=== PATIENT | female | born 1955 | race Caucasian/White ===

== ENCOUNTER 2020-05-31 15:39 | Outpatient (REF) | payer OTHER, SELFPAY ==
--- NOTE | 2020-05-31 15:44 | MM_ITS ---
EXAMINATION: MM SCREENING DIGITAL BREAST TOMOSYNTHESIS, RIGHT CLINICAL INFORMATION: Screening. Status post left mastectomy. COMPARISON: Mammography: May 26, 2019 and studies dating back to November 09, 2010 TECHNIQUE: Digital breast tomosynthesis is performed in both the craniocaudal and mediolateral oblique views along with computer-aided detection (CAD). Synthesized 2D images are generated from the tomosynthesis. Exaggerated right craniocaudal view also performed. FINDINGS: There are scattered areas of fibroglandular density (ACR BI-RADS breast composition Category b). There are no significant masses, abnormal calcifications, or other abnormalities. There is postsurgical change of the right breast. MM/MM tomosynthesis screening RT IMPRESSION: There are no significant changes from prior study. ASSESSMENT: BI-RADS 2: Benign RECOMMENDATION: Routine annual mammography screening. This patient's information was entered into a reminder system with a target due date for their next mammogram.
== END 2020-05-31 15:40 | disposition home or self-care (01) ==
LOC: HO.MAMMO 15:39
PROVIDERS: Visit Provider Internal Medicine
DX: Z12.31 Encounter for screening mammogram for malignant neoplasm of breast (principal)
CPT/HCPCS: 77067

== ENCOUNTER 2021-10-24 10:57 | Outpatient (REF) | payer OTHER, SELFPAY ==
--- NOTE | ~2021-10-24 | MM_ITS ---
EXAMINATION: MM SCREENING DIGITAL BREAST TOMOSYNTHESIS, RIGHT CLINICAL INFORMATION: Right lumpectomy and radiation, 1988. Status post left mastectomy, 2008. COMPARISON: Mammography: 05/31/2020, 05/26/2019, 04/02/2017 TECHNIQUE: Digital breast tomosynthesis is performed in both the craniocaudal and mediolateral oblique views along with computer-aided detection (CAD). Synthesized 2D images are generated from the tomosynthesis. Additional exaggerated right CC view is provided. FINDINGS: There are scattered areas of fibroglandular density (ACR BI-RADS breast composition Category b). Parenchymal pattern is similar to prior studies. There is no interval mass or architectural abnormality or abnormal calcifications. No skin thickening or coarsening Mario's ligaments. MM/MM tomosynthesis screening RT IMPRESSION: No mammographic evidence of malignancy. ASSESSMENT: BI-RADS 1: Negative RECOMMENDATION: Routine annual mammography screening. This patient's information was entered into a reminder system with a target due date for their next mammogram.
== END 2021-10-24 10:58 | disposition home or self-care (01) ==
LOC: HO.MAMMO 10:57
PROVIDERS: PCP Internal Medicine; Visit Provider Internal Medicine
DX: Z12.31 Encounter for screening mammogram for malignant neoplasm of breast (principal)
CPT/HCPCS: 77063; 77067

== ENCOUNTER 2022-01-24 08:45 | Outpatient (REF) | payer OTHER, SELFPAY ==
--- NOTE | ~2022-01-24 | US_ITS ---
EXAMINATION: US RETROPERITONEAL LIMITED (RENAL ONLY) CLINICAL INFORMATION: Renal cyst, renal calculus, status post stent removal from right. COMPARISON: Renal cysts, calculus. TECHNIQUE: Real-time imaging of the kidneys. FINDINGS: RIGHT KIDNEY: 8.9 x 3.7 x 4.6 cm (SAG x AP x TRV). The kidney is normal in size, contour, and echogenicity. Renal cortical thickness is normal. No calculi or focal parenchymal lesions. No hydronephrosis. LEFT KIDNEY: 9.8 x 5.3 x 4.2 cm (SAG x AP x TRV). The kidney is normal in size, contour, and echogenicity. Renal cortical thickness is normal. No hydronephrosis. There is anechoic cyst in the upper pole measuring 3.7 x 3.9 x 4.2 cm. There is a nonobstructive echogenic calculi in the midpole measuring 0.3 x 0.2 0.3 cm. There is mild pelvic fullness. US/US renal BI IMPRESSION: 1. Unremarkable right kidney. 2. Nonobstructive echogenic stone midpole measuring 0.3 x 0.2 x 0.3 cm. There is anechoic cyst upper pole left kidney. There is mild pelvic fullness.
== END 2022-01-24 08:46 | disposition home or self-care (01) ==
LOC: HO.US 08:45
PROVIDERS: Visit Provider Urology
DX: D30.3 Benign neoplasm of bladder (principal); N28.1 Cyst of kidney, acquired; N20.0 Calculus of kidney
CPT/HCPCS: 76775

== ENCOUNTER 2022-12-04 11:30 | Outpatient (REF) | payer MEDICARE, OTHER, SELFPAY ==
--- NOTE | ~2022-12-04 | MM_ITS ---
EXAMINATION: MM SCREENING DIGITAL BREAST TOMOSYNTHESIS, UNILATERAL CLINICAL INFORMATION: Screening. Asymptomatic. The patient has had a prior left mastectomy. COMPARISON: Mammography: This study is compared to prior mammograms dating back to 2018. TECHNIQUE: Digital breast tomosynthesis is performed in both the craniocaudal and mediolateral oblique views along with computer-aided detection (CAD). Synthesized 2D images are generated from the tomosynthesis. FINDINGS: There are scattered areas of fibroglandular density (ACR BI-RADS breast composition Category b). There is a focal asymmetry in the upper outer quadrant of the right breast at approximately the 12:00 position. Additional mammographic imaging is advised. Targeted sonographic imaging, if warranted is advised. There are no significant masses or abnormal calcifications. MM/MM tomosynthesis screening RT IMPRESSION: Focal asymmetry of the right breast warrants additional mammographic imaging. Targeted sonographic imaging, if warranted is also advised. ASSESSMENT: BI-RADS BI-RADS 0 - Incomplete: Needs additional Imaging. RECOMMENDATION: 1. Additional views of the right breast 2. Targeted ultrasound if warranted after review of the additional views. 3. Radiology department staff will contact the patient for additional imaging. Additional Imaging required This patient's information was entered into a reminder system with a target due date for their next mammogram.
== END 2022-12-04 11:31 | disposition home or self-care (01) ==
LOC: HO.MAMMO 11:30
PROVIDERS: PCP Internal Medicine; Visit Provider Internal Medicine
DX: Z12.31 Encounter for screening mammogram for malignant neoplasm of breast (principal)
CPT/HCPCS: 77063; 77067

== ENCOUNTER → 2022-12-04 11:45 | Outpatient (BNV) | payer MEDICARE, OTHER, SELFPAY | PROVIDERS: PCP Internal Medicine; Visit Provider Radiology Diagnostic Radiology | DX: Z12.31 Encounter for screening mammogram for malignant neoplasm of breast (principal); Z85.3 Personal history of malignant neoplasm of breast | CPT/HCPCS: 77067 ==

== ENCOUNTER 2023-01-03 07:44 | Outpatient (REF) | payer MEDICARE, OTHER, SELFPAY ==
--- NOTE | ~2023-01-03 | MM_ITS ---
EXAMINATION: MM DIAGNOSTIC DIGITAL BREAST TOMOSYNTHESIS, RIGHT CLINICAL INFORMATION: The patient is seen for further evaluation of a focal asymmetry of the right breast noted on screening mammography from 11/26/2022. COMPARISON: Mammography: Studies compared with prior exams dating back to 2018. TECHNIQUE: Digital breast tomosynthesis is performed. 2D images are generated from the tomosynthesis. The following views are obtained: A full lateral view of the right breast and spot compression in the CC and MLO projections. FINDINGS: There are scattered areas of fibroglandular density (ACR BI-RADS breast composition Category b). Additional views show no significant mass, architectural abnormality, or abnormal calcifications. Results are provided to the patient at time of visit by the technologist. MM/MM tomosynthesis added views R IMPRESSION: No mammographic evidence of malignancy. ASSESSMENT: BI-RADS BI-RADS 1 - Negative RECOMMENDATION: 1 year F/U This patient's information was entered into a reminder system with a target due date for their next mammogram.
== END 2023-01-03 07:45 | disposition home or self-care (01) ==
LOC: HO.MAMMO 07:44
PROVIDERS: PCP Internal Medicine; Visit Provider Internal Medicine
DX: R92.8 Other abnormal and inconclusive findings on diagnostic imaging of breast (principal)
CPT/HCPCS: 77061; 77065

== ENCOUNTER → 2023-01-03 08:00 | Outpatient (BNV) | payer OTHER, SELFPAY | PROVIDERS: PCP Internal Medicine; Visit Provider Radiology Diagnostic Radiology | DX: R92.2 Inconclusive mammogram (principal) | CPT/HCPCS: 77065 ==

== ENCOUNTER 2023-12-25 16:03 | Outpatient (REF) | payer MEDICARE, OTHER, SELFPAY ==
--- NOTE | ~2023-12-25 | MM_ITS ---
EXAMINATION: MM SCREENING DIGITAL BREAST TOMOSYNTHESIS, BILATERAL CLINICAL INFORMATION: Screening. Asymptomatic. The patient has a history of bilateral breast cancer and left mastectomy. COMPARISON: Mammography: This study is compared with prior exams dating back to 2019. TECHNIQUE: Digital breast tomosynthesis is performed in both the craniocaudal and mediolateral oblique views along with computer-aided detection (CAD). Synthesized 2D images are generated from the tomosynthesis. FINDINGS: There are scattered areas of fibroglandular density (ACR BI-RADS breast composition Category b). There are no significant masses, abnormal calcifications, or other abnormalities. Postsurgical changes present in the upper outer quadrant of the right breast. MM/MM tomosynthesis screening RT IMPRESSION: No mammographic evidence of malignancy. ASSESSMENT: BI-RADS BI-RADS 2 - Benign Findings RECOMMENDATION: Routine annual mammography screening. 1 year F/U This examination should not preclude the clinical evaluation of a suspicious palpable abnormality. This patient's information was entered into a reminder system with a target due date for their next mammogram.
== END 2023-12-25 16:04 | disposition home or self-care (01) ==
LOC: HO.MAMMO 16:03
PROVIDERS: PCP Internal Medicine; Visit Provider Internal Medicine
DX: Z12.31 Encounter for screening mammogram for malignant neoplasm of breast (principal)
CPT/HCPCS: 77063; 77067

== ENCOUNTER → 2023-12-25 16:15 | Outpatient (BNV) | payer MEDICARE, OTHER, SELFPAY | PROVIDERS: PCP Internal Medicine; Visit Provider Radiology Diagnostic Radiology | DX: Z12.31 Encounter for screening mammogram for malignant neoplasm of breast (principal) | CPT/HCPCS: 77063; 77067 ==

== ENCOUNTER 2024-12-30 15:43 | Outpatient (REF) | payer MEDICARE, OTHER, SELFPAY ==
--- OUTSIDE RECORDS SUMMARY | 2024-12-30 15:47 | XMS_ITS | Clinical Summary ---
Author Organization [facility] Address [address] [place] [phone] Phone Care Team Providers Care Exploration Geologist Name Role Phone Roby Navarro MD Primary Care Provider [phone] Allergies Active Allergy Reactions Criticality Noted Date Comments Amoxicillin Anaphylaxis High 09/16/2021 Amoxicillin-Pot Clavulanate High 10/06/19 ANAPHYLAXIS. Itchiness, redness all over skin and hypotension,lip swelling Betamethasone Anaphylaxis High 07/17/2022 Metoclopramide Anxiety Low 03/26/2009 Medications alendronate (FOSAMAX) 70 mg tablet Take 1 tablet (70 mg total) by mouth. 04/13/2024 Active aspirin 81 mg chewable tablet 1 tablet 03/22/2021 Act erasto atorvastatin (LIPITOR) 10 mg tablet Take 1 tablet (10 mg total) by mouth daily. 12/04/2023 Active citalopram (CeleXA) 10 mg tablet Take 1 tablet (10 mg total) by mouth daily. 04/24/2021 Active multivitamine, geriatric, (CENTRUM SILVER) tablet Take 1 tablet by mouth daily. Active VITAMIN B COMPLEX ORAL Take 1 capsule by mouth daily. Active Active Problems Problem Noted Date Diagnosed Date Malignant neoplasm of overla pping sites of left breast in female, estrogen receptor positive (CMS/HCC V24, CMS/HCC V28) 04/29/2024 Resolved Problems Problem Noted Date Diagnosed Date Resolved Date Malignant neoplasm of overla pping sites of right breast in female, estrogen receptor positive (CMS/HCC V24, CMS/HCC V28) 04/29/2024 1106/2023 Immunizations Name Administration Dates Next Due Right90 SARS-CoV-2 COVID-19, mRNA, LNP-S, preservative free 09/11/2020,08/21/2020 Social History Tobacco Use Types Packs/Day Years Used Date Smoking Tobacco: Former Smokeless Tobacco: Never Alcohol Use Standard Drinks/Week Comments No 0 (1 standard drink = 0.6 oz pur e alcohol) Comments Unknown Sex and Gender Information Value Date Recorded Sex Assigned at Not on file Legal Sex Female 5:11 AM EST Gender Identity Not on file Sexual Orientation Not on file Obstetrics History Last Filed Vital Signs Vital Sign Reading Time Taken Comments Blood Pressure 137/60 04/29/2024 2:26 PM EST Pulse 74 04/29/2024 2:26 PM EST Temperature 36.8 C (98.3 F) 04/29/2024 2:26 PM EST Respiratory Rate - - Oxygen Saturation 100% 04/29/2024 2:26 PM EST Inhaled Oxygen Concentration - - Weight 63 kg (139 lb) 04/29/2024 2:26 PM EST Height 172.7 cm (5' 8 ) 04/03/2023 9:01 AM EDT Body Mass Index 21.13 04/03/2023 9:01 AM EDT Plan of Treatment Upcoming Encounters Date Type Department Care Team (Late st Contact Info) Description 04/29/2025 9:00 AM EST Office Visit [facility] Hematology Oncology [address] [place] [address] Rudy Hernandez MD [address] [place] [address] Health Maintenance Due Date Last Done Comments Breast Cancer Screening 1955 Colorectal Cancer Screening: Colonoscopy 05/18/2022 Falls Risk Assessment 05/18/2022 Social Influencers of Health Screening 05/18/2022 Medicare Annual Wellness Visit 10/11/2023 10/10/2022 COVID-19 Vaccine ( season) 2024 10/27/2021, 05/04/2021, 09/11/2020, Additional history exists Depression Screening 06/09/2024 Lung Cancer Screening (Low Dose CT) 11/23/2024 11/24/2023 Influenza Vaccine (#1) 2025 3, 05/09/2022, 03/27/2021, Additional history exists DTaP,Tdap,and Td Vaccines (3 - Td or Tdap) 03/19/2026 03/19/2016, 12/08/2003 Cholesterol Screening (Lipid Panel) 01/14/2029 01/15/2024 RSV Immunization Adult Patients (1 - 1-dose 75+ series) 02/18/2032 Osteoporosis Screening (Bone Density Screening) 01/02/2033 01/02/2023 Hepatitis C Screening Completed 07/12/2020 Zoster Vaccines Completed 10/25/2020, 05/29/2020 Pneumococcal Vaccine: 50+ Years Completed 05/09/2022 HIB Vaccines Aged Out No longer eligi ble based on patient's age to complete this topic HPV Vaccines Aged Out No longer eligi ble based on patient's age to complete this topic Hepatitis A Vaccines Aged Out No long er eligible based on patient's age to complete this topic Hepatitis B Vaccines Aged Out No long er eligible based on patient's age to complete this topic IPV Vaccines Aged Out No longer eligi ble based on patient's age to complete this topic MMR Vaccines Aged Out No longer eligi ble based on patient's age to complete this topic Meningococcal ACWY Vaccine Aged Out N o longer eligible based on patient's age to complete this topic Meningococcal B Vaccine Aged Out No l onger eligible based on patient's age to complete this topic RSV Immunization Patients Under 20 months Aged Out No longer eligible based on patient's age to complete this topic Varicella Vaccines Aged Out No longer eligible based on patient's age to complete this topic Insurance [facility] MEDICARE ADVANTAGE [address] [place] [address] MEDICARE Care Teams Exploration Geologist Relationship Specialty Start Date End Date Roby Navarro MD [address] [place] [address] PCP - General Internal Medicine 04/06/19
--- OUTSIDE RECORDS SUMMARY | 2024-12-30 15:47 | XMS_ITS | Clinical Summary ---
Author Organization [facility] Address [address] [place], [place] [id number] Care Team Providers Care Orthotist/Prosthetist Name Role Phone Roby Navarro MD Primary Care Provider [phone] Allergies Active Allergy Reactions Criticality Noted Date Comments Amoxicillin Anaphylaxis High 07/17/2022 Betamethasone Anaphylaxis High 07/17/2022 Metoclopramide Anxiety Low 03/30/2018 Medications Medication Sig Dispensed Refills Start Date End Date Status aspirin EC 81 MG tablet Take 1 tablet (81 mg total) by mouth daily. 0 Active Calcium Carb-Cholecalciferol 600-500 MG-UNIT CAPS Take by mouth. 0 Active cholecalciferol (VITAMIN D3) 1000 units tablet Take 1 tablet (1,000 Units total) by mouth daily. 0 Active B Complex Vitamins (VITAMIN-B COMPLEX PO) Take by mouth. 0 Active ascorbic acid (VITAMIN C) 500 MG tablet Take 1 tablet (500 mg total) by mouth daily. 0 Active apixaban (Eliquis) 5 MG TABS tablet Take 1 tablet (5 mg total) by mouth every 12 (twelve) hours. 0 Active citalopram (CeleXA) 10 MG tablet Take 1 tablet (10 mg total) by mouth daily. 0 Active Active Problems Problem Noted Date Diagnosed Date Multiple subsegmental pulmon neto emboli without acute cor pulmonale 07/17/2022 Malignant neoplasm of overla pping sites of left breast in female, estrogen receptor positive 03/30/2018 Malignant neoplasm of overla pping sites of right breast in female, estrogen receptor negative 03/30/2018 Social History Tobacco Use Types Packs/Day Years Used Date Smoking Tobacco: Former Smokeless Tobacco: Never Alcohol Use Standard Drinks/Week Comments No 0 (1 standard drink = 0.6 oz pur e alcohol) Sex and Gender Information Value Date Recorded Sex Assigned at Not on file Gender Identity Not on file Sexual Orientation Not on file Job Start Date Occupation Industry Not on file Not on file Not on file Last Filed Vital Signs Vital Sign Reading Time Taken Comments Blood Pressure 136/48 04/03/2023 9:01 AM EDT Pulse 65 04/03/2023 9:01 AM EDT Temperature 36.8 C (98.2 F) 04/03/2023 9:01 AM EDT Respiratory Rate - - Oxygen Saturation 99% 04/03/2023 9:01 AM EDT Inhaled Oxygen Concentration - - Weight 62.1 kg (137 lb) 04/03/2023 9:01 AM EDT Height 172.7 cm (5' 8 ) 04/03/2023 9:01 AM EDT Body Mass Index 20.83 04/03/2023 9:01 AM EDT Plan of Treatment Health Maintenance Due Date Last Done Comments Hepatitis C Screening 1955 Depression Screening 1969 Preventative Health Evaluation 1975 Colon Cancer Screening (Colonoscopy) 2002 Breast Cancer Screening (Mammogram) 2007 COVID-19 Vaccine (3 - Pfizer risk series) 10/09/2020 09/11/2020, 08/21/2020 Fall Risk Assessment 2022 Osteoporosis Screening (DEXA Scan) 2022 Influenza Vaccine (#1) 2025 , 03/27/2021, 03/27/2020, Additional history exists DTap / Tdap / Td (2 - Td or Tdap) 03/19/2026 03/19/2016, 12/08/2003 RSV Adult > 60+ Yrs or (1 - 1-dose 75+ series) 02/18/2032 Shingrix-Zoster Vaccine Completed 10/25/2020, 05/29 Pneumococcal Vaccine Completed 05/09/2022 Hepatitis B Vaccines Aged Out No long er eligible based on patient's age to complete this topic RSV Ped < 20 months Aged Out No longe r eligible based on patient's age to complete this topic Care Teams Orthotist/Prosthetist Relationship Specialty Start Date End Date Roby Navarro MD [address] [place] [address] [place] [address] PCP - General Internal Medicine 03/30/18
--- OUTSIDE RECORDS SUMMARY | 2024-12-30 15:47 | XMS_ITS | Encounter Summary ---
Author Organization [facility] Address [address] [place] [address] Phone Care Team Providers Care Scaler Name Role Phone Roby Navarro MD Primary Care Provider [phone] Rudy Hernandez MD Unavailable [phone] Roby Navarro MD Unavailable Encounter Details Date Type Department Care Team (Late st Contact Info) Description 04/04/2022 Procedure Pass [facility] Endoscopy Admitting Dept Virtual Department [address] [place] [address] Social History Tobacco Use Types Packs/Day Years Used Date Smoking Tobacco: Every Day Cigarettes 0.5 53.6 Started: 1969 Smokeless Tobacco: Never Alcohol Use Standard Drinks/Week Comments Yes 0 (1 standard drink = 0.6 oz pure alcohol) rare, 3 drinks a year liquer mixed drink Child or Family Care Answer Date Record ed Do you have problems with on e of the following making it difficult for you to work, study, or receive health care? No 10/05/2021 Education Answer Date Recorded Are you interested in help w ith more adult education (for example, completing high school, GED, job training, learning the Bengali language, technical skills, or developing parenting skills)? No 10/05/2021 Food Answer Date Recorded Within the past 6 months we worried whether our food would run out before we got money to buy more. Never True 10/05/2021 Within the past 6 months the food we bought just didn't last and we didn't have enough money to get more. Never True Residential Stability Answer Date Recor ded What is your housing situation today? I have jessica sing 10/05/2021 How many times have you move d in the past 12 months? Zero (I did not move) 10/05/2021 Paying for Meds Answer Date Recorded Do you have trouble paying for medicines? No 10/05/2021 Paying Utility Bills Answer Date Record ed Do you have trouble paying your heating or elect ricity bill? No 10/05/2021 Transportation Answer Date Recorded Has the lack of transportati on kept you from medical appointments or from getting medications? No 10/05/2021 Unemployment Answer Date Recorded Are you currently unemployed or working on a part-time or temporary basis, and looking for work? No 10/05/2021 Comments No Sex and Gender Information Value Date Recorded Sex Assigned at Female 10/18/2021 11:48 PM EDT Legal Sex Female 9:53 PM EDT Gender Identity Female 10/18/2021 11:48 PM EDT Sexual Orientation Straight 10/18/2021 11 :48 PM EDT documented as of this encounter Plan of Treatment Upcoming Encounters Date Type Department Care Team (Late st Contact Info) Description 04/27/2025 9:00 AM EST Office Visit [facility] Internal Medicine [address] [place] [address] Roby Navarro MD [address] [place] [address] 10/26/2025 8:30 AM EDT Office Visit [facility] Internal Medicine [address] [place] [address] Roby Navarro MD [address] [place] [address] [email or web address] documented as of this encounter Visit Diagnoses Not on filedocumented in this encounter Additional Health Concerns Infection Onset Date Last Indicated Resolved Time CoV-Risk Comment:Neg covid 06/25/2022 06/25/2022 06/26/2022 6:[address] Assessment Noted Time PHQ-2 Depression Total Score: 0 10/06/19 10:07 AM EDT documented as of this encounter Care Teams Scaler Relationship Specialty Start Date End Date Roby Navarro MD [address] [place] [address] [email or web address] PCP - General 03/27/17 Rudy Hernandez MD [address] [place] [email or web address] 01/13/23 Roby Navarro MD [address] [place] [address] [email or web address] Insurance Assigned Provider 09/13/23 documented as of this encounter Additional Source Comments The information contained in this document represents components of the legal health record. It is not the complete legal health record.[facility]
--- OUTSIDE RECORDS SUMMARY | 2024-12-30 15:47 | XMS_ITS | Patient Health Record ---
Author Organization [facility] [place] Address [address] [place] [address] Care Team Providers Care Managed Security Sales Consultant Name Role Phone Ramon MAYEN, Dr. Ca Primary Care Provider Alena Saleh MD, Dr. Gardner Unavailable Results Component Value Reference Range Notes LIPID PANEL, STANDARD Reviewed date:06/16/2024 07:12:49 PM Interpretation: Performing Lab:NL[facility], [facility] [facility] [place], [place] [id number] Eirc Schneider Notes/Report: FASTING; 0 FASTING:YES FASTING: YES CHOLESTEROL, TOTAL 123 <200 mg/dL HDL CHOLESTEROL 59 > OR = 50 mg/dL TRIGLYCERIDES 43 <150 mg/dL LDL-CHOLESTEROL 52 Reference range: <100 Desirable range <100 mg/dL for primary prevention; <70 mg/dL for patients with CHD or diabetic patients with > or = 2 CHD risk factors. LDL-C is now calculated using the Maury-Angelo calculation, which is a validated novel method providing better accuracy than the Friedewald equation in the estimation of LDL-C. Maury SS et al. CHRIS. 2013;310(19): 5719-3910 (http://education.[employer].com/faq/DZN056) CHOL/HDLC RATIO 2.1 <5.0 (calc) NON HDL CHOLESTEROL 64 <130 mg/dL (calc) For patients with diabetes plus 1 major ASCVD risk factor, treating to a non-HDL-C goal of <100 mg/dL (LDL-C of <70 mg/dL) is considered a therapeutic option. C-REACTIVE PROTEIN Reviewed date:06/16/2024 08:36:04 PM Interpretation: Performing Lab:NL2, [employer] [place] [id number] Eric Schneider Notes/Report: FASTING; 0 FASTING:YES FASTING: YES C-REACTIVE PROTEIN 3.9 <8.0 mg/L ECG Reviewed date: Interpretation: Performing Lab: Notes/Report: HR 86 P 108 PAxis 76 PQ 143 QRS 88 QRSAxis 89 QT 392 QTc 438 QTd 0 TAxis 70 Reason For Referral No Information Medications Medication SIG (Take, Route, Frequency, Duration) Notes Start Date End Date Status Atorvastatin Calcium 10 MG 1 tablet Orally Once a day Active Aspir-81 Active Fosamax 70 MG 1 tablet 30 minutes before the first food, beverage or medicine of the day with plain water Orally Active Ascorbic Acid 500 MG 1 tablet Orally Onc e a day Not-Taking Vitamin D3 25 MCG (1000 UT) 1 capsule Orally Once a day Not-Taking Calcium 600 MG 1 tablet with meals Orally Twice a day Active Vitamin B Complex - as directed Orally Active Citalopram Hydrobromide 10 MG 1 tablet Orally Once a day Active Multivitamin - 1 tablet Orally Once a day Active EPINEPHrine 0.3 MG/0.3ML as directed Injection Active Social History Tobacco Use: Social History Observation Description Date Details (start date - stop date) Current Smoker 06/20/1972 - NA Tobacco Control (Standard) Question Answer Notes Tobacco use: Current smoker When did you start smoking? 06/20/1972 How often do you smoke cigarettes? Every day How many cigarettes a day do you smoke? 6-10 AUDIT-C (Standard) Question Answer Notes Did you have a drink containing alcohol in the p ast year? No Points 0 Interpretation Negative Section Notes: [place] Quit smoking 15 years ago for 9 months Daughter is [employer]) ; son is teacher in [place]: Quit smoking 15 years ago for 9 months Daughter is [employer]) ; son is teacher in [place] Problems Problem Type SNOMED Code ICD Code Onset Dates Problem Status W/U Status Risk Notes Problem Hyperlipidemia (02437059) Hyperlipidemia, unspecified (E78.5) Active confirmed Problem Atherosclerotic heart disease of [place] coronary artery without angina pectoris (I25.10) Active confirmed Vital Signs Heart Rate 77 /min 08/27/2024 Blood pressure diastolic 60 mm Hg 08/27/2024 Oximetry 97 % 08/27/2024 Height 68 in 08/27/2024 Blood pressure systolic 110 mm Hg 08/27/2024 Weight 138 lbs 08/27/2024 BMI 20.98 kg/m2 08/27/2024 Encounters Encounter Location Date Provider Diagnosis Ana Rosa RHODES [address] [place], [place] [address] 06/29/2024 Kendra RHODES [address] [place] [address] 08/10/2024 Kendra RHODES [address] [place], [place] [address] 06/10/2024 Kendra Delfino Hyperlipidemia, unspecified E78.5 ; Atherosclerotic heart disease of [place] coronary artery without angina pectoris I25.10 ; Elevated blood-pressure reading, without diagnosis of hypertension R03.0 ; Tobacco use Z72.0 and Family history of ischemic heart disease and other diseases of the circulatory system Z82.49 Ana Rosa RHODES [address] [place] [address] 08/27/2024 Kendra Delfino Hyperlipidemia, unspecified E78.5 ; Atherosclerotic heart disease of [place] coronary artery without angina pectoris I25.10 ; Elevated blood-pressure reading, without diagnosis of hypertension R03.0 ; Tobacco use Z72.0 and Family history of ischemic heart disease and other diseases of the circulatory system Z82.49 Ana Rosa RHODES [address] [place], [place] [address] 04/05/2024 Kendra RHODES [address] [place] [address] 06/10/2024 Kendra RHODES [address] [place] [address] 07/01/2024 Kendra RHODES [address] [place] [address] 07/05/2024 Kendra RHODES [address] [place] [address] 08/06/2024 Kendra RHODES [address] [place] [address] 08/10/2024 Kendramarta Saleh Assessments Encounter Date Diagnosis (ICD Code) Assessment Notes Treatment Notes Treatment Clinical Notes Section Notes 06/10/2024 Hyperlipidemia, unspecified (ICD-10 - E78.5) 69-year-old recurrent breast cancer survivor active smoker found to have severe coronary artery calcifications on lung cancer screening CT. We discussed the natural history of atherosclerosis in detail. We discussed calcium is initially deposited in the medial layer of the vessel wall. We discussed progression is unpredictable. We discussed lung cancer screening technique does not tell us about degree of narrowing within the blood vessel itself. We discuss we know definively that ongoing cigarette smoking is a powerful growth factor for vascular disease. We discussed there is data that suggests that patient to stop smoking, in 1 year lower the risk of heart attack by 50%. She reports this has been a very difficult struggle for her; she does not smoke in her house or near her grandchildren ( whom she has helped care for) . She was appropriately started on statin ( low dose) after coronary artery calcifications were identified. She is not had updated lipid profile. We also discussed eating more plant based is also recommended. We discussed long-term cancer survivorship additionally increases risk of future vascular events approximately 10 years after patients have completed their cancer treatment. We discussed this is a current area of active research and now many patients are educated about this when they successfully complete their cancer treatment. This was not recognized at the time of treatment for either of her episodes of breast cancer. We also discussed concern about late toxicities from certain chemotherapy agents ( including adriamycin) and we should plan on pursuing echocardiogram. She does walk regularly but has no other formal exercise regimen. We will pursue ischemia evaluation (she reports reassuring normal myocardial perfusion imaging about 3 years ago in [facility]). We also discussed after stress testing, plans to increase her exercise regimen to achieve exercise 60 minutes a day including some resistance training and touched on some of the data regarding exercise and reduction of future vascular events. Blood pressure is elevated today, she thinks this is unusual. 06/10/2024 Atherosclerotic heart disease of [place] coronary artery without angina pectoris (ICD-10 - I25.10) 69-year-old recurrent breast cancer survivor active smoker found to have severe coronary artery calcifications on lung cancer screening CT. We discussed the natural history of atherosclerosis in detail. We discussed calcium is initially deposited in the medial layer of the vessel wall. We discussed progression is unpredictable. We discussed lung cancer screening technique does not tell us about degree of narrowing within the blood vessel itself. We discuss we know definively that ongoing cigarette smoking is a powerful growth factor for vascular disease. We discussed there is data that suggests that patient to stop smoking, in 1 year lower the risk of heart attack by 50%. She reports this has been a very difficult struggle for her; she does not smoke in her house or near her grandchildren ( whom she has helped care for) . She was appropriately started on statin ( low dose) after coronary artery calcifications were identified. She is not had updated lipid profile. We also discussed eating more plant based is also recommended. We discussed long-term cancer survivorship additionally increases risk of future vascular events approximately 10 years after patients have completed their cancer treatment. We discussed this is a current area of active research and now many patients are educated about this when they successfully complete their cancer treatment. This was not recognized at the time of treatment for either of her episodes of breast cancer. We also discussed concern about late toxicities from certain chemotherapy agents ( including adriamycin) and we should plan on pursuing echocardiogram. She does walk regularly but has no other formal exercise regimen. We will pursue ischemia evaluation (she reports reassuring normal myocardial perfusion imaging about 3 years ago in [facility]). We also discussed after stress testing, plans to increase her exercise regimen to achieve exercise 60 minutes a day including some resistance training and touched on some of the data regarding exercise and reduction of future vascular events. Blood pressure is elevated today, she thinks this is unusual. 08/27/2024 Hyperlipidemia, unspecified (ICD-10 - E78.5) 69-year-old recurrent breast cancer survivor active smoker found to have severe coronary artery calcifications on lung cancer screening CT. We reviewed again calcium is initially deposited in the medial layer of the vessel wall. We discussed progression is unpredictable and reviewed worrisome symptoms. We discuss we know definively that ongoing cigarette smoking is a powerful growth factor for vascular disease. We discussed there is data that suggests that patient to stop smoking, in 1 year lower the risk of heart attack by 50%. WE discussed [facility] supportive programs, i.e. 1800 quit now. She reports this has been a very difficult struggle for her; she does not smoke in her house or near her grandchildren ( whom she has helped care for) . She was appropriately started on statin ( low dose) after coronary artery calcifications were identified. Last LDL at goal. We also discussed eating more plant based is also recommended. We discussed long-term cancer survivorship additionally increases risk of future vascular events approximately 10 years after patients have completed their cancer treatment. She does walk regularly but has no other formal exercise regimen; she remembers we discussed increasing her walking and adding resistance training and she is planning on doin this. 08/27/2024 Atherosclerotic heart disease of [place] coronary artery without angina pectoris (ICD-10 - I25.10) Reassuring stress test reviewed with patient; all questions answered; ongoing risk factor modification discussed. Worrisome symptoms reviewed; all questions answered. 69-year-old recurrent breast cancer survivor active smoker found to have severe coronary artery calcifications on lung cancer screening CT. We reviewed again calcium is initially deposited in the medial layer of the vessel wall. We discussed progression is unpredictable and reviewed worrisome symptoms. We discuss we know definively that ongoing cigarette smoking is a powerful growth factor for vascular disease. We discussed there is data that suggests that patient to stop smoking, in 1 year lower the risk of heart attack by 50%. WE discussed [facility] supportive programs, i.e. 1800 quit now. She reports this has been a very difficult struggle for her; she does not smoke in her house or near her grandchildren ( whom she has helped care for) . She was appropriately started on statin ( low dose) after coronary artery calcifications were identified. Last LDL at goal. We also discussed eating more plant based is also recommended. We discussed long-term cancer survivorship additionally increases risk of future vascular events approximately 10 years after patients have completed their cancer treatment. She does walk regularly but has no other formal exercise regimen; she remembers we discussed increasing her walking and adding resistance training and she is planning on doin this. 08/27/2024 Elevated blood-pressure reading, without diagnosis of hypertension (ICD-10 - R03.0) 69-year-old recurrent breast cancer survivor active smoker found to have severe coronary artery calcifications on lung cancer screening CT. We reviewed again calcium is initially deposited in the medial layer of the vessel wall. We discussed progression is unpredictable and reviewed worrisome symptoms. We discuss we know definively that ongoing cigarette smoking is a powerful growth factor for vascular disease. We discussed there is data that suggests that patient to stop smoking, in 1 year lower the risk of heart attack by 50%. WE discussed [facility] supportive programs, i.e. 1800 quit now. She reports this has been a very difficult struggle for her; she does not smoke in her house or near her grandchildren ( whom she has helped care for) . She was appropriately started on statin ( low dose) after coronary artery calcifications were identified. Last LDL at goal. We also discussed eating more plant based is also recommended. We discussed long-term cancer survivorship additionally increases risk of future vascular events approximately 10 years after patients have completed their cancer treatment. She does walk regularly but has no other formal exercise regimen; she remembers we discussed increasing her walking and adding resistance training and she is planning on doin this. 06/10/2024 Elevated blood-pressure reading, without diagnosis of hypertension (ICD-10 - R03.0) We discussed the recent Surgeon General's call to action to control hypertension. We discussed hypertension is often known as a silent killer as it frequently, has no signs or symptoms. If not well controlled, hypertension can increase a person's risk for heart disease, stroke, heart failure, kidney disease, complications and cognitive decline or dementia. However, hypertension is preventable risk factor for heart disease and stroke. Hypertension is very common, as nearly 1 in 2 adults have hypertension yet only 1 in 4 have it under control. DASH diet: DASH stands for dietary approaches to stop hypertension . The DASH diet is a lifelong approach to healthy eating that''s designed to help treat or prevent high blood pressure. DASH diet encourages to reduce the sodium in her diet and eat a variety of foods rich in nutrients that help lower blood pressure, such as potassium, calcium and magnesium. By following the DASH diet, you may be able to reduce your blood pressure by a few points in just 2 weeks. Over time, your systolic blood pressure could drop by 8-14 points. The DASH diet emphasizes vegetables, fruits and low fat dairy foods and moderate amounts of whole grains, fish poultry and nuts. 69-year-old recurrent breast cancer survivor active smoker found to have severe coronary artery calcifications on lung cancer screening CT. We discussed the natural history of atherosclerosis in detail. We discussed calcium is initially deposited in the medial layer of the vessel wall. We discussed progression is unpredictable. We discussed lung cancer screening technique does not tell us about degree of narrowing within the blood vessel itself. We discuss we know definively that ongoing cigarette smoking is a powerful growth factor for vascular disease. We discussed there is data that suggests that patient to stop smoking, in 1 year lower the risk of heart attack by 50%. She reports this has been a very difficult struggle for her; she does not smoke in her house or near her grandchildren ( whom she has helped care for) . She was appropriately started on statin ( low dose) after coronary artery calcifications were identified. She is not had updated lipid profile. We also discussed eating more plant based is also recommended. We discussed long-term cancer survivorship additionally increases risk of future vascular events approximately 10 years after patients have completed their cancer treatment. We discussed this is a current area of active research and now many patients are educated about this when they successfully complete their cancer treatment. This was not recognized at the time of treatment for either of her episodes of breast cancer. We also discussed concern about late toxicities from certain chemotherapy agents ( including adriamycin) and we should plan on pursuing echocardiogram. She does walk regularly but has no other formal exercise regimen. We will pursue ischemia evaluation (she reports reassuring normal myocardial perfusion imaging about 3 years ago in [facility]). We also discussed after stress testing, plans to increase her exercise regimen to achieve exercise 60 minutes a day including some resistance training and touched on some of the data regarding exercise and reduction of future vascular events. Blood pressure is elevated today, she thinks this is unusual. 06/10/2024 Tobacco use (ICD-10 - Z72.0) 69-year-old recurrent breast cancer survivor active smoker found to have severe coronary artery calcifications on lung cancer screening CT. We discussed the natural history of atherosclerosis in detail. We discussed calcium is initially deposited in the medial layer of the vessel wall. We discussed progression is unpredictable. We discussed lung cancer screening technique does not tell us about degree of narrowing within the blood vessel itself. We discuss we know definively that ongoing cigarette smoking is a powerful growth factor for vascular disease. We discussed there is data that suggests that patient to stop smoking, in 1 year lower the risk of heart attack by 50%. She reports this has been a very difficult struggle for her; she does not smoke in her house or near her grandchildren ( whom she has helped care for) . She was appropriately started on statin ( low dose) after coronary artery calcifications were identified. She is not had updated lipid profile. We also discussed eating more plant based is also recommended. We discussed long-term cancer survivorship additionally increases risk of future vascular events approximately 10 years after patients have completed their cancer treatment. We discussed this is a current area of active research and now many patients are educated about this when they successfully complete their cancer treatment. This was not recognized at the time of treatment for either of her episodes of breast cancer. We also discussed concern about late toxicities from certain chemotherapy agents ( including adriamycin) and we should plan on pursuing echocardiogram. She does walk regularly but has no other formal exercise regimen. We will pursue ischemia evaluation (she reports reassuring normal myocardial perfusion imaging about 3 years ago in [facility]). We also discussed after stress testing, plans to increase her exercise regimen to achieve exercise 60 minutes a day including some resistance training and touched on some of the data regarding exercise and reduction of future vascular events. Blood pressure is elevated today, she thinks this is unusual. 08/27/2024 Tobacco use (ICD-10 - Z72.0) Strongly advised patient to quit smoking. Over the last several decades, an undeniable body of evidence of causal association between tobacco cigarette smoking and cardiovascular events including myocardial infarction, stroke, heart failure and cardiovascular mortality. 69-year-old recurrent breast cancer survivor active smoker found to have severe coronary artery calcifications on lung cancer screening CT. We reviewed again calcium is initially deposited in the medial layer of the vessel wall. We discussed progression is unpredictable and reviewed worrisome symptoms. We discuss we know definively that ongoing cigarette smoking is a powerful growth factor for vascular disease. We discussed there is data that suggests that patient to stop smoking, in 1 year lower the risk of heart attack by 50%. WE discussed [facility] supportive programs, i.e. 1800 quit now. She reports this has been a very difficult struggle for her; she does not smoke in her house or near her grandchildren ( whom she has helped care for) . She was appropriately started on statin ( low dose) after coronary artery calcifications were identified. Last LDL at goal. We also discussed eating more plant based is also recommended. We discussed long-term cancer survivorship additionally increases risk of future vascular events approximately 10 years after patients have completed their cancer treatment. She does walk regularly but has no other formal exercise regimen; she remembers we discussed increasing her walking and adding resistance training and she is planning on doin this. 08/27/2024 Family history of ischemic heart disease and other diseases of the circulatory system (ICD-10 - Z82.49) 69-year-old recurrent breast cancer survivor active smoker found to have severe coronary artery calcifications on lung cancer screening CT. We reviewed again calcium is initially deposited in the medial layer of the vessel wall. We discussed progression is unpredictable and reviewed worrisome symptoms. We discuss we know definively that ongoing cigarette smoking is a powerful growth factor for vascular disease. We discussed there is data that suggests that patient to stop smoking, in 1 year lower the risk of heart attack by 50%. WE discussed [facility] supportive programs, i.e. 1800 quit now. She reports this has been a very difficult struggle for her; she does not smoke in her house or near her grandchildren ( whom she has helped care for) . She was appropriately started on statin ( low dose) after coronary artery calcifications were identified. Last LDL at goal. We also discussed eating more plant based is also recommended. We discussed long-term cancer survivorship additionally increases risk of future vascular events approximately 10 years after patients have completed their cancer treatment. She does walk regularly but has no other formal exercise regimen; she remembers we discussed increasing her walking and adding resistance training and she is planning on doin this. 06/10/2024 Family history of ischemic heart disease and other diseases of the circulatory system (ICD-10 - Z82.49) 69-year-old recurrent breast cancer survivor active smoker found to have severe coronary artery calcifications on lung cancer screening CT. We discussed the natural history of atherosclerosis in detail. We discussed calcium is initially deposited in the medial layer of the vessel wall. We discussed progression is unpredictable. We discussed lung cancer screening technique does not tell us about degree of narrowing within the blood vessel itself. We discuss we know definively that ongoing cigarette smoking is a powerful growth factor for vascular disease. We discussed there is data that suggests that patient to stop smoking, in 1 year lower the risk of heart attack by 50%. She reports this has been a very difficult struggle for her; she does not smoke in her house or near her grandchildren ( whom she has helped care for) . She was appropriately started on statin ( low dose) after coronary artery calcifications were identified. She is not had updated lipid profile. We also discussed eating more plant based is also recommended. We discussed long-term cancer survivorship additionally increases risk of future vascular events approximately 10 years after patients have completed their cancer treatment. We discussed this is a current area of active research and now many patients are educated about this when they successfully complete their cancer treatment. This was not recognized at the time of treatment for either of her episodes of breast cancer. We also discussed concern about late toxicities from certain chemotherapy agents ( including adriamycin) and we should plan on pursuing echocardiogram. She does walk regularly but has no other formal exercise regimen. We will pursue ischemia evaluation (she reports reassuring normal myocardial perfusion imaging about 3 years ago in [facility]). We also discussed after stress testing, plans to increase her exercise regimen to achieve exercise 60 minutes a day including some resistance training and touched on some of the data regarding exercise and reduction of future vascular events. Blood pressure is elevated today, she thinks this is unusual. 06/10/2024 Other Worrisome symptoms reviewed; all questions answered. Return after diagnostic testing to review results and further recommendati ons. 69-year-old recurrent breast cancer survivor active smoker found to have severe coronary artery calcifications on lung cancer screening CT. We discussed the natural history of atherosclerosis in detail. We discussed calcium is initially deposited in the medial layer of the vessel wall. We discussed progression is unpredictable. We discussed lung cancer screening technique does not tell us about degree of narrowing within the blood vessel itself. We discuss we know definively that ongoing cigarette smoking is a powerful growth factor for vascular disease. We discussed there is data that suggests that patient to stop smoking, in 1 year lower the risk of heart attack by 50%. She reports this has been a very difficult struggle for her; she does not smoke in her house or near her grandchildren ( whom she has helped care for) . She was appropriately started on statin ( low dose) after coronary artery calcifications were identified. She is not had updated lipid profile. We also discussed eating more plant based is also recommended. We discussed long-term cancer survivorship additionally increases risk of future vascular events approximately 10 years after patients have completed their cancer treatment. We discussed this is a current area of active research and now many patients are educated about this when they successfully complete their cancer treatment. This was not recognized at the time of treatment for either of her episodes of breast cancer. We also discussed concern about late toxicities from certain chemotherapy agents ( including adriamycin) and we should plan on pursuing echocardiogram. She does walk regularly but has no other formal exercise regimen. We will pursue ischemia evaluation (she reports reassuring normal myocardial perfusion imaging about 3 years ago in [facility]). We also discussed after stress testing, plans to increase her exercise regimen to achieve exercise 60 minutes a day including some resistance training and touched on some of the data regarding exercise and reduction of future vascular events. Blood pressure is elevated today, she thinks this is unusual. 08/27/2024 Other We discussed I will be retiring March 08, 2025. It has been my pleasure to have participated in her care. 69-year-old recurrent breast cancer survivor active smoker found to have severe coronary artery calcifications on lung cancer screening CT. We reviewed again calcium is initially deposited in the medial layer of the vessel wall. We discussed progression is unpredictable and reviewed worrisome symptoms. We discuss we know definively that ongoing cigarette smoking is a powerful growth factor for vascular disease. We discussed there is data that suggests that patient to stop smoking, in 1 year lower the risk of heart attack by 50%. WE discussed [facility] supportive programs, i.e. 1800 quit now. She reports this has been a very difficult struggle for her; she does not smoke in her house or near her grandchildren ( whom she has helped care for) . She was appropriately started on statin ( low dose) after coronary artery calcifications were identified. Last LDL at goal. We also discussed eating more plant based is also recommended. We discussed long-term cancer survivorship additionally increases risk of future vascular events approximately 10 years after patients have completed their cancer treatment. She does walk regularly but has no other formal exercise regimen; she remembers we discussed increasing her walking and adding resistance training and she is planning on doin this. Plan Of Treatment Pending Test Test Name Order Date Echocardiogram 06/10/2024 Exercise Stress Nuclear Test 06/10/2024 Insurance Providers Payer Name Payer Address Payer Phone Subscriber Number Group Number Insured Name Patient Relationship to Insured Coverage Start Date Coverage End Date Medicare [address] [place] [address] [id number] Valerie Araujo Self - patient is the insured [facility] [address] [place] [phone] [id number] Valerie Araujo Self - patient is the insured 3 Medical (General) History Medical History History ICD Code Breast Cancer: 06/1987 right breast ( she found lump); s/P needle aspiration; followed by lumpectomy then chemo ( adriamycin/cytoxan); XRT 30 treatments; 2008: Left breast different pathology: S/P mastectomy; chemo unknown Surgical History Surgery Date(Month/Year) Mastectomy
== END 2024-12-30 15:44 | disposition home or self-care (01) ==
LOC: HO.MAMMO 15:43
PROVIDERS: PCP Internal Medicine; Visit Provider Internal Medicine
DX: Z12.31 Encounter for screening mammogram for malignant neoplasm of breast (principal)
CPT/HCPCS: 77063; 77067

== ENCOUNTER → 2024-12-30 16:00 | Outpatient (BNV) | payer MEDICARE, OTHER, SELFPAY | PROVIDERS: PCP Internal Medicine; Visit Provider Internal Medicine | DX: Z12.31 Encounter for screening mammogram for malignant neoplasm of breast (principal) | CPT/HCPCS: 77063; 77067 ==